=== PATIENT | male | born 1970 | race Hispanic/Latino ===

== ENCOUNTER 2021-02-27 12:17 | Emergency (ER) | payer OTHER ==
--- NOTE | 2021-02-27 13:59 | Event Note ---
ED Screening Note ED Screening Note: pt reports seen here last week co ra pain he was told he had cellulitis and now he states his skin is "falling off" and distal fingers numb. no open or sloughing areas noted on exam full rom. rapid cap refill pt states he had surgery here on left arm in past- no record found he has also had hernia surgery he is on no daily meds at this time but states he finished the antibiotic we gave him. pmh- denies This initial assessment/diagnostic orders/clinical plan/treatment(s) is/are subject to change based on patients health status, clinical progression and re- assessment by fellow clinical providers in the ED. Further treatment and workup at subsequent clinical providers discretion. Patient/guardian urged not to elope from the ED as their condition may be serious if not clinically assessed and managed. Initial orders include: labs/blood cultures/lactic acid
[2021-02-27 14:14] LABS: Basophils # (Auto) 0.1 K/mm3 (0.0-0.1); Basophils % (Auto) 0.7 % (0.0-1.8); Eosinophils # (Auto) 0.2 K/mm3 (0.0-0.4); Eosinophils % (Auto) 2.2 % (0.0-4.3); Hematocrit 42.5 % (35.5-45.6); Hemoglobin 14.5 gm/dl (11.8-15.2); Lymphocytes # (Auto) 1.7 K/mm3 (1.2-5.4); Lymphocytes % (Auto) 17.4 % (13.4-35.0); Mean Corpuscular HGB Conc 34 % (32-34); Mean Corpuscular Volume 96 fl (84-94); Monocytes # (Auto) 0.7 K/mm3 (0.0-0.8); Monocytes % (Auto) 7.2 % (0.0-7.3); Platelet Count 549 K/mm3 (140-440); Red Blood Count 4.44 M/mm3 (3.65-5.03); Red Cell Distribution Width 14.3 % (13.2-15.2)
[2021-02-27 14:33] LABS: Alanine Aminotransferase 30 units/L (7-56); Albumin 4.3 g/dL (3.9-5); BUN/Creatinine Ratio 16; Blood Urea Nitrogen 13 mg/dL (9-20); Calcium 10.2 mg/dL (8.4-10.2); Hemolysis Index 4
[2021-02-27 16:50] VITALS: BP 145/93
[2021-02-27] MEDS ORDERED: KETOROLAC 30 MG/1 ML INJ IM STA (17:08)
--- NOTE | 2021-02-27 17:08 | Emergency Department Report ---
Upper Extremity - HPI Chief Complaint: Extremity Problem,Nontraumatic Stated Complaint: PAIN IN RT ARM Time Seen by Provider: 02/27/21 14:04 Upper Extremity: Right Forearm, Right Wrist, Right Hand Occurred When: >5 Days Mechanism: Unsure Symptoms: Yes Pain with Movement, Yes Limited Range of Movement, No Deformity, No Numbness, No Weakness, No Swelling, No Bruising/Ecchymosis, No Laceration or Abrasion Other History: The patient was evaluated in the emergency department for symptoms described in the history of present illness. He/she was evaluated in the context of the global COVID-19 pandemic, which necessitated consideration that the patient might be at risk for infection with the virus that causes COVID-19. Institutional protocols and algorithms that pertain to the evaluation of patients at risk for COVID-19 are in a state of rapid change based on information released by regulatory bodies including the CDC and federal and state organizations. These policies and algorithms were followed during the patient's care in the emergency department. Please note that these policies, procedures and recommendations changed on a rapid basis. 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 The patient presents to the ER with a recurrent complaint of left medial forearm pain, lightninglike discomfort, and feeling like his right pinky, and ring finger are being held in flexion, and not working as well as at baseline. The patient denies headache, neck pain, chest pain, abdominal pain, shortness of breath, fever and chills. He states that his approximately week and 1/2 to 2 weeks ago, his right upper extremity was swollen. He thinks it was red, and but he is not certain. The patient also reports that he was given a splint and placed on antibiotics, the name of which he cannot recall. The patient states he feels like he has no power on his right medial forearm. He feels like his muscles have atrophied. He further feels pain with range of motion in his pinky, and ring finger. He denies elbow pain and shoulder pain. He denies additional injuries and complaints. His pain increases with range of motion, and decreases with rest. He does have an orthopedist whom he has seen approximately 10 years ago for left-sided shoulder surgery. He thinks, but is not certain, that he may have been bit by a baby snake about 2 weeks ago, but he is not certain. He reports he is continue to work as an powerhouse electrician apprentice with his right hand through his pain. Please note this patient has another ED Review of Systems ROS: Stated complaint: PAIN IN RT ARM Other details as noted in HPI Constitutional: denies: diaphoresis, malaise ENT: denies: epistaxis Respiratory: denies: cough Cardiovascular: denies: chest pain Gastrointestinal: denies: nausea, vomiting, diarrhea Musculoskeletal: arthralgia, myalgia Neurological: numbness ED Past Medical Hx - Past Medical History Previous Medical History?: No - Surgical History Past Surgical History?: No - Medications Home Medications: Home Medications Medication Instructions Recorded Confirmed Last Taken Type Acetaminophen [Non-Aspirin Extra 500 mg PO Q6HR PRN #30 tablet 02/27/21 Unknown Rx Strength] Gabapentin 300 mg PO Q8HR #90 capsule 02/27/21 Unknown Rx Ibuprofen [Motrin] 600 mg PO Q8H PRN #30 tablet 02/27/21 Unknown Rx Morphine Sulfate [Morphine Sulfate 7.5 mg PO Q6HR PRN #10 tablet 02/27/21 Unknown Rx IR] Upper Extremity Exam - Exam General: Vital signs noted. No distress. Alert and acting appropriately. Sensation is intact to light touch in the right deltoid, median, radial distribution. Sensation is decreased to pinch/pinprick in the right ulnar distribution. Sensation is intact to light touch in the right ulnar distribut ion. Thumb opposition is intact to the pointer finger and middle finger. Patient partial wrist extension and flexion. Limited circumduction of the right wrist. 2+ pulses noted in the bilateral upper extremities. 2-second capillary refill in the right upper extremity. There is obvious atrophy of the right medial forearm. Head and Torso: No HEENT Abnormality, No Neck Tenderness, No Chest/Lungs Abnormality, No Abdominal Tenderness, No Back Tenderness Shoulder Exam: Yes Normal Range of Motion in Shoulder, No Shoulder Tenderness, No Clavicle Tenderness, No Shoulder Deformity, No AC Joint Tenderness Arm Exam: No Arm/Humerus Tenderness, No Arm Deformity Elbow: Yes Normal Range of Motion in Elbow, No Elbow Tenderness, No Elbow Deformity Forearm: Yes Forearm Tenderness (There is right medial forearm tenderness. The right medial forearm is atrophied compared to the), Yes Pain with Pronation, Yes Pain with Supination, No Forearm Deformity Wrist: Yes Normal ROM in Wrist, No Wrist Tenderness, No Wrist Deformity, No Snuffbox Tenderness, No Pain with Axial Thumb Compression Hand: Yes Hand Tenderness, Yes Hand Deformity, Yes Tendon Dysfunction, No Digit Tenderness, No Normal ROM in Digit(s) (The right thumb, pointer, and middle finger have appropriate range of motion. The fourth and fifth digits are held in partial flexion. Partial range of motion is intact with flexion and extension, but limited secondary to pain), No Digit(s) Deformity CMS Exam: Yes Normal Distal Pulses, Yes Normal Capillary Refill, Yes Normal Distal Sensation, No Broken Skin ED Course Vital Signs 02/27/21 16:49 Temperature 97.9 F Pulse Rate 83 Respiratory 18 Rate Blood Pressure 145/93 [Left] O2 Sat by Pulse 99 Oximetry - Reevaluation(s) Reevaluation #1: 02/27/21 17:14 al manager filter aware Summary Total Prescriptions 1 Total Private Pay 1 Total Prescribers 1 Total Pharmacies 1 Opioids* (excluding buprenorphine) Current Qty 0.0 Current MME/day 0.0 30 Day Avg MME/day 0.6 Buprenorphine* Current Qty 0.0 Current mg/day 0.0 30 Day Avg mg/day 0.0 Prescriptions Loading... 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 *Per CDC guidance, the MME conversion factors prescribed or provided as part of medication-assisted treatment for opioid use disorder should not be used to benchmark against dosage thresholds meant for opioids prescribed for pain. Buprenorphine products have no agreed upon morphine equivalency, and as partial opioid agonists, are not expected to be associated with overdose risk in the same dose-dependent manner as doses for full agonist opioids. MME = morphine milligram equivalents. mg = dose in milligrams. Prescribers Name Address [facility] Zip Phone [address] [facility] [address] [facility] Address [facility] Zip Phone [facility] [phone] [facility] [id number] ED Medical Decision Making - Lab Data Result diagrams: 02/27/21 13:55 02/27/21 13:55 Vital Signs 02/27/21 16:49 Temperature 97.9 F Pulse Rate 83 Respiratory 18 Rate Blood Pressure 145/93 [Left] O2 Sat by Pulse 99 Oximetry Lab Results 02/27/21 02/27/21 02/27/21 Range/Units 13:55 13:55 13:55 WBC 9.7 (4.5-11.0) K/mm3 RBC 4.44 (3.65-5.03) M/mm3 Hgb 14.5 (11.8-15.2) gm/dl Hct 42.5 (35.5-45.6) % MCV 96 H (84-94) fl MCH 33 H (28-32) pg MCHC 34 (32-34) % RDW 14.3 (13.2-15.2) % Plt Count 549 H (140-440) K/mm3 Lymph % (Auto) 17.4 (13.4-35.0) % [place] % (Auto) 7.2 (0.0-7.3) % Eos % (Auto) 2.2 (0.0-4.3) % Baso % (Auto) 0.7 (0.0-1.8) % Lymph # (Auto) 1.7 (1.2-5.4) K/mm3 [place] # (Auto) 0.7 (0.0-0.8) K/mm3 Eos # (Auto) 0.2 (0.0-0.4) K/mm3 Baso # (Auto) 0.1 (0.0-0.1) K/mm3 Seg Neutrophils % 72.5 H (40.0-70.0) % Seg Neutrophils # 7.0 (1.8-7.7) K/mm3 Sodium 140 (137-145) mmol/L Potassium 4.4 (3.6-5.0) mmol/L Chloride 101.4 (98-107) mmol/L Carbon Dioxide 28 (22-30) mmol/L Anion Gap 15 mmol/L BUN 13 (9-20) mg/dL Creatinine 0.8 (0.8-1.3) mg/dL Estimated GFR > 60 ml/min BUN/Creatinine Ratio 16 % Glucose 85 (75-100) mg/dL Lactic Acid 0.80 (0.7-2.0) mmol/L Calcium 10.2 (8.4-10.2) mg/dL Total Bilirubin 0.20 (0.1-1.2) mg/dL AST 16 (5-40) units/L ALT 30 (7-56) units/L Alkaline Phosphatase 91 (35-129) units/L Total Protein 8.1 (6.3-8.2) g/dL Albumin 4.3 (3.9-5) g/dL Albumin/Globulin Ratio 1.1 % - Medical Decision Making Differential diagnosis, including but not limited to: Ulnar neuropathy, neuropathic pain Assessment and plan: 50-year-old gentleman, [id number], 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 He is afebrile with reassuring vital signs. His muscular compartments are soft. There is no redness, pus, streaking. When distracted, the forearm is very nontender. He does have some pain with passive range of motion of the pinky and ring finger. However the digits are nonred, nonswollen, and do not present as sausagelike. This is most likely an ulnar neuropathy. Laboratory studies and blood cultures were ordered and sent prior to my personal evaluation of this patient. He will be placed in an ulnar gutter. He is instructed to not use the right upper extremity. He will be started on morphine sulfate for breakthrough pain, acetaminophen and ibuprofen, as well as gabapentin. Patient is strongly encouraged to follow-up with an outpatient primary care doctor, neurologist or orthopedist for further outpatient evaluation of presumed ulnar neuropathy. All questions answered. He has articulated understanding. Return precautions are reviewed. Critical care attestation.: If time is entered above; I have spent that time in minutes in the direct care of this critically ill patient, excluding procedure time. ED Disposition Clinical Impression: Ulnar neuropathy Qualifiers: Laterality: right Qualified Code(s): G56.21 - Lesion of ulnar nerve, right upper limb Disposition: HOME / SELF CARE / HOMELESS Is pt being admited?: No Does the pt Need Aspirin: No Condition: Good Instructions: Neuropathic Pain, Peripheral Neuropathy Additional Instructions: As we discussed, we suspect that the patient has a right upper extremity ulnar neuropathy. Please keep the right upper extremity volar splint in place. Recommend that patient follow-up with a primary care doctor, neurologist, orthopedic surgeon or hand surgeon within the next 5 to 7 days for repeat eckup and evaluation. Dr Early is a local orthopedic surgeon. Dr. Iliana Fisher is a local neurologist. [facility]. Dr. Karlee Hodge is a local primary care doctor. The patient should not use his right upper extremity for any heavy lifting or work-related activity. The patient may use his right upper extremity for light activities of daily living. When taking morphine sulfate for pain, do not drive, consume alcohol, or make important decisions. Please have a primary care doctor contact the medical records department to obtain copies of laboratory studies and culture results which were sent today. Gabapentin is a pain medication against nerve pain, and may assist with the patient's sensation of discomfort, however, it sometimes takes a few weeks to b ecome effective. Please return to the emergency room right away with new pain, worsened pain, migration of pain, projectile vomiting, change in mental status, confusion, inability to tolerate liquid feeds, new, worsened or different symptoms not present on the initial emergency room evaluation. Prescriptions: Gabapentin 300 mg PO Q8HR #90 capsule Morphine Sulfate [Morphine Sulfate IR] 7.5 mg PO Q6HR PRN #10 tablet PRN Reason: Pain , Severe (7-10) Ibuprofen [Motrin] 600 mg PO Q8H PRN #30 tablet PRN Reason: Pain Acetaminophen [Non-Aspirin Extra Strength] 500 mg PO Q6HR PRN #30 tablet PRN Reason: Pain , Severe (7-10) Referrals: DARIUS FISHER MD [Staff Physician] - 3-5 Days MARTÍN EARLY MD [Staff Physician] - 3-5 Days [facility] [Provider Group] - 3-5 Days ELIZABETH HODGE MD [Staff Physician] - 3-5 Days Forms: Work/School Release Form(ED)
[2021-02-27] MEDS ORDERED: HYDROmorphone 1 MG/1 ML INJ IM ONE (17:13)
== END 2021-02-27 18:26 | disposition home or self-care (01) ==
LOC: ED 12:17
DX: G56.21 Lesion of ulnar nerve, right upper limb (principal); Z79.899 Other long term (current) drug therapy
CPT/HCPCS: 29125; 36415; 80053; 82140; 85025; 87040; 96372; 99283; J1170; J1885